=== PATIENT | female | born 1995 | race Caucasian/White ===

== ENCOUNTER 2018-11-23 10:01 | Inpatient (IN) ==
[2018-11-23] MEDS ORDERED: IOPAMIDOL 100 ML BOTTLE IV ONE (10:02)
--- NOTE | 2018-11-23 10:40 | XRay Report ---
INDICATION: Wheezing. Dyspnea. Chronic cough. TECHNIQUE: PA and lateral upright chest x-ray COMPARISON: Previous examinations dated 11/16/2018 and 11/08/2018 FINDINGS:Lungs are negative. No parenchymal infiltrate or mass. No focal pulmonary parenchymal abnormality. Heart size and vascularity are normal. Meeta and mediastinum are negative. There is no pleural fluid. IMPRESSION: 1. Negative PA and lateral chest x-ray 2. No interval change since 11/16/2018 Interpreted and Authenticated by: Klaus Bennett 11/23/18
--- NOTE | 2018-11-23 10:50 | Emergency Department Note ---
SOB HPI - General Chief Complaint: Shortness of Breath/Dyspnea Stated Complaint: shortness of breath Time Seen by Provider: 11/23/18 10:13 Source: patient Mode of arrival: ambulatory Limitations: no limitations - History of Present Illness 22-year-old female in ED with shortness of breath or difficulty breathing. October 02 patient began coughing having chest discomfort with coughing and wheezing started along with shortness of breath. Patient was treating herself for seasonal allergies but states she does not normal any wheezing. October 18 she went to a minor care and was provided a Z-Robinson for possible pneumonia and a breathing treatment along with an inhaler for home use. October 26 she returned to a different minor care and was advised her x-ray looked good but was provided prednisone, cough syrup and Flonase. November 01 she was seen by her primary care provider and was provided Augmentin and Tessalon Perles. That night she had difficulty sleeping and shortness of breath. She went to work the next day and 911 was called to pick her up from work and she was taken to [facility], they admitted her for bacterial pneumonia/bronchitis and she stayed there until November 05. November 08 patient was still having difficulty breathing return to [facility] ER and she was provided IV fluids. November 09 patient went to her primary and was provided at home nebulizers. November 22 she was seen by her primary given a breathing treatment due to wheezing, protein pump inhibitor, and patient believes an antibiotic called levo something. Patient states during this entire time she feels she's had no changes in her breathing, she has difficulty sleeping through the night as she wakes up choking and coughing on mucous, she has decreased energy and at times she coughs to the point of vomiting. Patient states she has had no bowel or bladder changes and when she feels pain it's usually the left lower side. She has been doing her at home treatments nebulizer every 2-3 hours some days. Complaint: shortness of breath, cough Onset (ago): month(s) (1.5) Severity: moderate Consistency/Duration: constant Improves with: nothing Worsens with: lying flat, exertion Associated symptoms: Reports: chest pain (with cough), cough, wheezing, sputum production. Denies: fever Treatment prior to arrival: bronchodilator - Related Data Home oxygen amount: none Home Medications Medication Instructions Recorded Confirmed fluticasone propionate 50 1 spray INTRANASAL QDAY 11/09/18 11/22/18 mcg/actuation nasal spray,suspension guaifenesin ER 600 mg tablet, 600 mg PO BID PRN 11/09/18 11/22/18 extended release 12 hr montelukast 10 mg tablet 10 mg PO QPM 11/09/18 11/22/18 Previous Rx's Medication Instructions Recorded albuterol sulfate HFA 90 2 puff INHALATION Q6H PRN #6.7 g 10/19/18 mcg/actuation aerosol inhaler albuterol sulfate 2.5 mg/3 mL 2.5 mg INHALATION Q4H PRN #75 ml 11/09/18 (0.083 %) solution for nebulization nebulizer accessories kit See Dose Instructions .ROUTE 11/09/18 .MEDSUPPLY #1 each fluticasone 250 mcg-salmeterol 50 1 inh INHALATION BID #60 each 11/16/18 mcg/dose blistr powdr for inhalation ipratropium-albuterol 0.5 mg-3 3 ml INHALATION QID PRN #90 ml 11/22/18 mg(2.5 mg base)/3 mL nebulization soln levofloxacin 500 mg tablet 500 mg PO QDAY #7 tab 11/22/18 pantoprazole 40 mg tablet,delayed 40 mg PO QDAY #30 tab 11/22/18 release Allergies Allergy/AdvReac Type Severity Reaction Status Date / Time No Known Drug Allergies Allergy Verified 11/22/18 10:59 Review of Systems All systems ED: reviewed and negative except as stated. Past Medical History - Past Medical History PMFSH Narrative: All Active Problems (Last Updated 11/23/18 @ 06:51 by Rasheeda Nash) Bacterial pneumonia (Chronic) Cough (Chronic) Multifocal pneumonia (Chronic) Acute bronchitis (Chronic) Heartburn (Acute) Hyperglycemia (Acute) Tachycardia (Chronic) Leukocytosis (Chronic) Ear pain (Chronic) SOB (shortness of breath) (Chronic) Pneumonia (Chronic) Past Surgical History (Last Reviewed 11/22/18 @ 12:45 by FRANK Brothers) History of adenoidectomy (Chronic) History of tonsillectomy (Chronic) Family History (Last Reviewed 11/22/18 @ 12:45 by FRANK Brothers) Grandfather Cancer Grandmother Cancer Other Alcohol abuse Asthma Hypertension Migraine Seizure - Social History smoking status: Never smoker Alcohol use: Reports: None Drug use: Reports: none Physical Exam Limitations: no limitations General appearance: alert, in no apparent distress (patient does have rapid respirations but is able to talk in full sentences) Head: atraumatic, normocephalic, normal inspection Eye: Present: normal appearance, PERRL. Absent: conjunctival injection ENT: normal oropharynx, mucous membranes moist, TM's normal bilaterally Neck: Present: normal inspection. Absent: tenderness, lymphadenopathy Chest: Present: normal inspection, symmetric chest wall rise. Absent: tenderness Respiratory: Present: wheezes (bilateral throughout) Cardiovascular: Present: tachycardia. Absent: systolic murmur, diastolic murmur Abdominal: Present: soft, normal bowel sounds. Absent: distention, tenderness, guarding, rebound, rigidity Extremities: Present: normal inspection. Absent: pedal edema Back: Present: normal inspection. Absent: tenderness, CVA tenderness (R), CVA tenderness (L) Neurological: Present: alert, oriented X3, normal gait Psychiatric: Present: normal affect, normal mood. Absent: depressed, agitated, anxious, flat affect Skin: Present: warm, dry, intact, pallor. Absent: cool, diaphoretic Course Vital Signs Temperature 97.0 F 11/23/18 10:03 Pulse Rate 119 H 11/23/18 10:03 Respiratory Rate 24 H 11/23/18 10:03 Blood Pressure 119/81 11/23/18 10:03 Pulse Oximetry (%) 97 11/23/18 10:03 Temperature 97.0 F 11/23/18 10:03 Pulse Rate 88 11/23/18 12:53 Respiratory Rate 19 11/23/18 12:53 Blood Pressure 101/65 11/23/18 12:53 Pulse Oximetry (%) 98 11/23/18 12:53 Shortness of Breath/Dyspnea - [facility] Narrative Medical decision making narrative: Patient did present with increased respirations and tachypnea. Patient did take levofloxacin by mouth one day ago and this morning. WBC 16.0 which is increased from one day ago at 14.7, lactic acid 2.8, d-dimer 0.56, CO2 19, anion gap 18, negative urine drug screen, negative leukocytes and urine HCG. x-ray chest negative, CT a chest ordered due to elevated d-dimer which did show upper left lobe infiltrates which have improved since 11/02. Provided patient later lactated Ringer's 2-boluses (and 3rd started prior to going to the floor) and nebulizer treatment which did not change wheezing. Contacted hospitalist Dr. Cedillo who accepted patient. - Lab Data Lab results reviewed: Yes I reviewed the patient's lab results. Result diagrams: 11/23/18 10:25 11/23/18 10:25 Lab Results 11/23/18 11/23/18 11/23/18 Range/Units 10:25 10:25 10:25 WBC 16.0 H (4.5-11.0) K/mcL RBC 5.15 (4.00-5.20) M/mcL Hgb 13.9 (12.0-15.0) g/dL Hct 43.0 (36.0-48.0) % MCV 83.6 (80.0-100.0) fL MCH 27.0 (26.0-34.0) pg MCHC 32.3 (31.0-36.0) g/dL RDW 17.2 H (11.5-14.5) % Plt Count 348 (140-440) K/mcL MPV 9.4 (7.4-10.4) fL Gran % 70.3 (38.0-78.0) % Lymph % (Auto) 14.4 L (15.5-49.0) % [place] % (Auto) 4.9 (1.0-12.0) % Eos % (Auto) 10.1 H (0.0-7.0) % Baso % (Auto) 0.3 (0.0-2.0) % Gran # 11.3 H (1.8-8.0) K/mcL Lymph # (Auto) 2.3 (1.5-4.8) K/mcL [place] # (Auto) 0.8 (0.1-0.9) K/mcL Eos # (Auto) 1.6 H (0.0-0.7) K/mcL Baso # (Auto) 0.1 (0.0-0.3) K/mcL D-Dimer 0.56 H (0.00-0.40) ug/ml VBG Lactic Acid (0.5-2.0) mmol/L Sodium 141 (133-145) mmol/L Potassium 3.4 (3.3-5.1) mmol/L Chloride 104 (96-108) mmol/L Carbon Dioxide 19 L (22-30) mmol/L Anion Gap 18.0 H (8-16) BUN 7 (6-20) mg/dl Creatinine 0.8 (0.6-1.1) mg/dl GFR Calculation 106 Glucose 104 (70-105) mg/dL Calcium 9.1 (8.6-10.4) mg/dl Total Bilirubin 0.5 (0.0-1.0) mg/dL AST 16 (0-37) U/l ALT 27 (0-40) U/l Alkaline Phosphatase 86 (39-117) U/L Total Protein 7.4 (5.9-8.4) gm/dL Albumin 4.1 (3.2-5.2) gm/dL Globulin 3.3 (2.2-3.7) gm/dL Albumin/Globulin Ratio 1.2 (1.0-2.3) Urine Color Urine Appearance Urine pH (5.0-9.0) Ur Specific [place] (1.000-1.035) Urine Protein (NEG) mg/dL Urine Glucose (UA) (NEG) mg/dL Urine Ketones (NEG) mg/dL Urine Occult Blood (<0.03) mg/dL Urine Nitrate (NEG) Urine Bilirubin (NEG) mg/dL Urine Urobilinogen (NEG) mg/dL Ur Leukocyte Esterase (NEG) /uL Urine RBC (0-1) /hpf Urine WBC (0-4) /hpf Ur Squamous Epith Cells (0-4) /hpf Ur Transition Epith Cell (0-2) /hpf Urine Bacteria (0) /hpf Urine Mucus (0) /hpf Ur Culture Indicated? Urine HCG, Qual (<20 mIU/ml) Urine Opiates Screen (NONDETECTED) Ur Oxycodone Screen (NONDETECTED) Urine Methadone Screen (NONDETECTED) Ur Barbiturates Screen (NONDETECTED) Ur Phencyclidine Scrn (NONDETECTED) Ur Amphetamines Screen (NONDETECTED) U Benzodiazepines Scrn (NONDETECTED) Urine Cocaine Screen (NONDETECTED) U Marijuana (THC) Screen (NONDETECTED) 11/23/18 11/23/18 11/23/18 Range/Units 10:25 11:32 11:32 WBC (4.5-11.0) K/mcL RBC (4.00-5.20) M/mcL Hgb (12.0-15.0) g/dL Hct (36.0-48.0) % MCV (80.0-100.0) fL MCH (26.0-34.0) pg MCHC (31.0-36.0) g/dL RDW (11.5-14.5) % Plt Count (140-440) K/mcL MPV (7.4-10.4) fL Gran % (38.0-78.0) % Lymph % (Auto) (15.5-49.0) % [place] % (Auto) (1.0-12.0) % Eos % (Auto) (0.0-7.0) % Baso % (Auto) (0.0-2.0) % Gran # (1.8-8.0) K/mcL Lymph # (Auto) (1.5-4.8) K/mcL [place] # (Auto) (0.1-0.9) K/mcL Eos # (Auto) (0.0-0.7) K/mcL Baso # (Auto) (0.0-0.3) K/mcL D-Dimer (0.00-0.40) ug/ml VBG Lactic Acid 2.8 H (0.5-2.0) mmol/L Sodium (133-145) mmol/L Potassium (3.3-5.1) mmol/L Chloride (96-108) mmol/L Carbon Dioxide (22-30) mmol/L Anion Gap (8-16) BUN (6-20) mg/dl Creatinine (0.6-1.1) mg/dl GFR Calculation Glucose (70-105) mg/dL Calcium (8.6-10.4) mg/dl Total Bilirubin (0.0-1.0) mg/dL AST (0-37) U/l ALT (0-40) U/l Alkaline Phosphatase (39-117) U/L Total Protein (5.9-8.4) gm/dL Albumin (3.2-5.2) gm/dL Globulin (2.2-3.7) gm/dL Albumin/Globulin Ratio (1.0-2.3) Urine Color Yellow Urine Appearance Clear Urine pH 7.0 (5.0-9.0) Ur Specific [place] 1.018 (1.000-1.035) Urine Protein Neg (NEG) mg/dL Urine Glucose (UA) Negative (NEG) mg/dL Urine Ketones Neg (NEG) mg/dL Urine Occult Blood Neg (<0.03) mg/dL Urine Nitrate Neg (NEG) Urine Bilirubin Neg (NEG) mg/dL Urine Urobilinogen Neg (NEG) mg/dL Ur Leukocyte Esterase Neg (NEG) /uL Urine RBC < 1 (0-1) /hpf Urine WBC 1 (0-4) /hpf Ur Squamous Epith Cells 1 (0-4) /hpf Ur Transition Epith Cell < 1 (0-2) /hpf Urine Bacteria 0 (0) /hpf Urine Mucus Mod (0) /hpf Ur Culture Indicated? No Urine HCG, Qual (<20 mIU/ml) Urine Opiates Screen None detected (NONDETECTED) Ur Oxycodone Screen None detected (NONDETECTED) Urine Methadone Screen None detected (NONDETECTED) Ur Barbiturates Screen None detected (NONDETECTED) Ur Phencyclidine Scrn None detected (NONDETECTED) Ur Amphetamines Screen None detected (NONDETECTED) U Benzodiazepines Scrn None detected (NONDETECTED) Urine Cocaine Screen None detected (NONDETECTED) U Marijuana (THC) Screen None detected (NONDETECTED) 11/23/18 Range/Units 11:32 WBC (4.5-11.0) K/mcL RBC (4.00-5.20) M/mcL Hgb (12.0-15.0) g/dL Hct (36.0-48.0) % MCV (80.0-100.0) fL MCH (26.0-34.0) pg MCHC (31.0-36.0) g/dL RDW (11.5-14.5) % Plt Count (140-440) K/mcL MPV (7.4-10.4) fL Gran % (38.0-78.0) % Lymph % (Auto) (15.5-49.0) % [place] % (Auto) (1.0-12.0) % Eos % (Auto) (0.0-7.0) % Baso % (Auto) (0.0-2.0) % Gran # (1.8-8.0) K/mcL Lymph # (Auto) (1.5-4.8) K/mcL [place] # (Auto) (0.1-0.9) K/mcL Eos # (Auto) (0.0-0.7) K/mcL Baso # (Auto) (0.0-0.3) K/mcL D-Dimer (0.00-0.40) ug/ml VBG Lactic Acid (0.5-2.0) mmol/L Sodium (133-145) mmol/L Potassium (3.3-5.1) mmol/L Chloride (96-108) mmol/L Carbon Dioxide (22-30) mmol/L Anion Gap (8-16) BUN (6-20) mg/dl Creatinine (0.6-1.1) mg/dl GFR Calculation Glucose (70-105) mg/dL Calcium (8.6-10.4) mg/dl Total Bilirubin (0.0-1.0) mg/dL AST (0-37) U/l ALT (0-40) U/l Alkaline Phosphatase (39-117) U/L Total Protein (5.9-8.4) gm/dL Albumin (3.2-5.2) gm/dL Globulin (2.2-3.7) gm/dL Albumin/Globulin Ratio (1.0-2.3) Urine Color Urine Appearance Urine pH (5.0-9.0) Ur Specific [place] (1.000-1.035) Urine Protein (NEG) mg/dL Urine Glucose (UA) (NEG) mg/dL Urine Ketones (NEG) mg/dL Urine Occult Blood (<0.03) mg/dL Urine Nitrate (NEG) Urine Bilirubin (NEG) mg/dL Urine Urobilinogen (NEG) mg/dL Ur Leukocyte Esterase (NEG) /uL Urine RBC (0-1) /hpf Urine WBC (0-4) /hpf Ur Squamous Epith Cells (0-4) /hpf Ur Transition Epith Cell (0-2) /hpf Urine Bacteria (0) /hpf Urine Mucus (0) /hpf Ur Culture Indicated? Urine HCG, Qual Negative <20 (<20 mIU/ml) Urine Opiates Screen (NONDETECTED) Ur Oxycodone Screen (NONDETECTED) Urine Methadone Screen (NONDETECTED) Ur Barbiturates Screen (NONDETECTED) Ur Phencyclidine Scrn (NONDETECTED) Ur Amphetamines Screen (NONDETECTED) U Benzodiazepines Scrn (NONDETECTED) Urine Cocaine Screen (NONDETECTED) U Marijuana (THC) Screen (NONDETECTED) - Radiology Data Radiology results reviewed: Yes I reviewed the patient's radiology results. Date of Service: 11/23/18 Procedure(s): XR chest 2V Accession Number(s): [id number] INDICATION: Wheezing. Dyspnea. Chronic cough. TECHNIQUE: PA and lateral upright chest x-ray COMPARISON: Previous examinations dated 11/16/2018 and 11/08/2018 FINDINGS:Lungs are negative. No parenchymal infiltrate or mass. No focal pulmonary parenchymal abnormality. Heart size and vascularity are normal. Meeta and mediastinum are negative. There is no pleural fluid. IMPRESSION: 1. Negative PA and lateral chest x-ray 2. No interval change since 11/16/2018 Interpreted and Authenticated by: Klaus Bennett 11/23/18 Date of Service: 11/23/18 Procedure(s): CT angio chest Accession Number(s): [id number] CLINICAL INFORMATION: Elevated d-dimer. Wheezing. Cough. COMPARISON: Pulmonary CTA dated 11/02/2018 performed at [facility] TECHNIQUE: Axial images obtained through the chest. 60 mL intravenous contrast was administered, and scanning was performed during pulmonary arterial phase. Sagittally and coronally reformatted images were obtained. MIP reformatted images. FINDINGS: Small focal groundglass infiltrate in the left upper lobe lungs are otherwise negative. Lungs are improved since previous examination. There were multifocal groundglass infiltrates demonstrated previously. No focal mass. There is no bronchiectasis. No significant emphysematous change. Main pulmonary artery, right pulmonary artery, left pulmonary artery are negative. No lobar, segmental, or subsegmental emboli. Examination is negative for pulmonary embolism. Meeta and mediastinum are negative. Small axillary lymph nodes are probably physiologic. No supraclavicular adenopathy. Thoracic spine, sternum, ribs are negative. Upper abdomen is negative IMPRESSION: 1. Negative pulmonary CTA 2. Small focal groundglass infiltrate in the left upper lobe. Lungs are improved since 11/02/2018 Disposition Pt seen by TECHNICIAN BIOLOGICAL HEALTH/PA only: No (Medical Record Clerk) Clinical Impression: Pneumonia Qualifiers: Pneumonia type: due to unspecified organism Laterality: left Lung location: upper lobe of lung Qualified Code(s): J18.1 - Lobar pneumonia, unspecified organism Sepsis Qualifiers: Sepsis type: sepsis due to unspecified organism Qualified Code(s): A41.9 - Sepsis, unspecified organism Disposition: Xfer As Inpt ([facility]) Condition: Good Referrals: Elizabeth Lopez ARNP [Primary Care Provider] - Time of Disposition: 14:38
[2018-11-23 11:12] LABS: Basophils # (Auto) 0.1 K/mcL (0.0-0.3); Basophils % (Auto) 0.3 % (0.0-2.0); Eosinophils # (Auto) 1.6 K/mcL (0.0-0.7); Eosinophils % (Auto) 10.1 % (0.0-7.0); Granulocytes % (Auto) 70.3 % (38.0-78.0); Hemoglobin 13.9 g/dL (12.0-15.0); Lymphocytes # (Auto) 2.3 K/mcL (1.5-4.8); Lymphocytes % (Auto) 14.4 % (15.5-49.0); Mean Cell Volume 83.6 fL (80.0-100.0); Mean Corpuscular HGB Conc 32.3 g/dL (31.0-36.0); Mean Platelet Volume 9.4 fL (7.4-10.4); Monocytes # (Auto) 0.8 K/mcL (0.1-0.9); Monocytes % (Auto) 4.9 % (1.0-12.0); Platelet Count 348 K/mcL (140-440); RBC 5.15 M/mcL (4.00-5.20); Red Cell Distribution Width 17.2 % (11.5-14.5)
[2018-11-23 11:31] LABS: ALT/SGPT 27 U/l (0-40); AST/SGOT 16 U/l (0-37); Albumin 4.1 gm/dL (3.2-5.2); Albumin/Globulin Ratio 1.2 (1.0-2.3); Alkaline Phosphatase 86 U/L (39-117); Bilirubin,Total 0.5 mg/dL (0.0-1.0); Blood Urea Nitrogen 7 mg/dl (6-20); Calcium 9.1 mg/dl (8.6-10.4); Carbon Dioxide 19 mmol/L (22-30); Chloride 104 mmol/L (96-108); Globulin 3.3 gm/dL (2.2-3.7); Glomerular Filtration Rate 106; Glucose 104 mg/dL (70-105); Potassium 3.4 mmol/L (3.3-5.1); Sodium 141 mmol/L (133-145)
[2018-11-23] MEDS ORDERED: IPRATROPIUM/ALBUTEROL 3 ML AMPUL.NEB NEB ONE ×2 (11:36→11:41)
[2018-11-23] MEDS ORDERED: LACTATED RINGERS 2,000 ML IV ONE (11:42)
[2018-11-23 12:17] LABS: Appearance,Urine CLEAR; Bacteria,Urine 0 /hpf (0); Bilirubin,Urine NEG (NEG); Color,Urine YELLOW; Culture Indicated,Urine NO; Glucose,Urine (UA) NEGATIVE (NEG); Ketones,Urine NEG (NEG); Leukocyte Esterase,Urine NEG /uL (NEG); Mucus,Urine MOD /hpf (0); Nitrate,Urine NEG (NEG); Protein,Urine NEG (NEG); Specific Gravity,Urine 1.018 (1.000-1.035); Urine Blood NEG mg/dL (<0.03); Urine RBC < 1 /hpf (0-1); Urine Squamous Epithelial Cell 1 /hpf (0-4); Urine Transitional Epi Cells < 1 /hpf (0-2); Urine WBC 1 /hpf (0-4); Urobilinogen,Urine NEG (NEG)
--- NOTE | 2018-11-23 12:24 | Cat Scan Report ---
CLINICAL INFORMATION: Elevated d-dimer. Wheezing. Cough. COMPARISON: Pulmonary CTA dated 11/02/2018 performed at [facility] TECHNIQUE: Axial images obtained through the chest. 60 mL intravenous contrast was administered, and scanning was performed during pulmonary arterial phase. Sagittally and coronally reformatted images were obtained. MIP reformatted images. FINDINGS: Small focal groundglass infiltrate in the left upper lobe lungs are otherwise negative. Lungs are improved since previous examination. There were multifocal groundglass infiltrates demonstrated previously. No focal mass. There is no bronchiectasis. No significant emphysematous change. Main pulmonary artery, right pulmonary artery, left pulmonary artery are negative. No lobar, segmental, or subsegmental emboli. Examination is negative for pulmonary embolism. Meeta and mediastinum are negative. Small axillary lymph nodes are probably physiologic. No supraclavicular adenopathy. Thoracic spine, sternum, ribs are negative. Upper abdomen is negative IMPRESSION: 1. Negative pulmonary CTA 2. Small focal groundglass infiltrate in the left upper lobe. Lungs are improved since 11/02/2018 The exam was performed using radiation dose optimization techniques including, but not limited to, automated exposure control, adjustment of the mA and/or kV according to patient size and use of iterative reconstruction technique. Interpreted and Authenticated by: Klaus Bennett 11/23/18
[2018-11-23 13:51] LABS: Amphetamine Screen,Urine NONE DETECTED (NONDETECTED); Barbiturate Screen,Urine NONE DETECTED (NONDETECTED); Benzodiazepines Screen,Urine NONE DETECTED (NONDETECTED); Cannabinoid Screen,Urine NONE DETECTED (NONDETECTED); Cocaine Screen,Urine NONE DETECTED (NONDETECTED); Opiate Screen,Urine NONE DETECTED (NONDETECTED); Oxycodone, Urine Screen NONE DETECTED (NONDETECTED); Phencyclidine Screen,Urine NONE DETECTED (NONDETECTED)
--- NOTE | 2018-11-23 14:38 | Internal Med History&Physical ---
Medical - H&P: HPI Patient information: Note initiated : 11/23/18 at 2:34 pm Service Date, if different from initiated Date: [] Patient: Katlyn Martinez 22 y/o F admitted on for shortness of breath. Chief Complaint: [] History of present illness: Ms. Martinez is a 22 year old F who works at [employer], presents to the hospital today for shortness of breath chills going on for the last 6 days. The patient has not been feeling well since September, she notes that she came down with symptoms of shortness of breath cough with whitish-yellowish production, wheezing, fatigue tiredness. She was evaluated at that time at an urgent care center, advised to take a Z-Robinson. She completed the course of antibiotics which did not help her symptoms. She was seen again I believe in minor care and was prescribed another antibiotic Augmentin along with some steroids. The patient to please medications without any improvement in her symptoms. She was admitted to [facility] in October I believe in the early part of the month. She was treated over there with azithromycin and Rocephin, steroids. Chest CT was done which showed multifocal pneumonia with groundglass opacities. Patient notes that she had some improvement to her treatment. She also was prescribed a course of doxycycline and steroids at discharge. Last dose of steroid was 2 weeks ago. After she finished a steroid she felt better for a few days however symptoms are totally back up. The present episode started I believe on and has progressively gotten worse. She has subjective sensation of chills cough shortness of breath and wheezing. She has headache with cough intermittently, no changes in vision, sometimes it is difficult to swallow hurts. Denies any chest pain nausea vomiting diarrhea denies any anxiety or depression. The patient denies any skin rashes or new joint pains. 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 She denies any sick contacts and notes that probably she was a source of the infection for the rest of her family, has after her episode of illness and may some members of her family were also sick with similar illness. The patient does not smoke, no recreational drug use no alcohol reported. She denies any recent change in the perfume or any obvious environmental change that she can think of. Labs in the emergency room show, WBC count of 16,000, 10% eosinophils, chemistries unremarkable, urine is negative for any hematuria proteinuria, chest CT was done which shows pneumonia in the left upper lobe groundglass opacity. On comparison with a chest CT done at [facility] where the patient had multifocal pneumonia, at this time the patient only has left upper lobe pneumonia the rest of the opacities have resolved. Lactic acid is elevated at 2.8, patient has had multiple rounds of duo nebs this morning. Given that the patient is significantly short of breath, has had recent admissions and failed outpatient treatment, elevated white blood cell count elevated lactic acid patient is being admitted to the hospital for management I have reviewed the chart at [facility], she was evaluated by infectious disease specialist at that time, she underwent testing for Legionella urine strep, purtusis, MRSA screen was negative sputum cultures were negative blood cultures were negative repeat chest x-ray done on 11/16 was also negative All systems: reviewed and no additional remarkable complaints except as stated (As per HPI rest negative) Medical - H&P: PMH Medical history: Medical History (Last Updated 11/23/18 @ 06:51 by Rasheeda Nash) Bacterial pneumonia (Chronic) Cough (Chronic) Multifocal pneumonia (Chronic) Acute bronchitis (Chronic) Tachycardia (Chronic) Leukocytosis (Chronic) Ear pain (Chronic) SOB (shortness of breath) (Chronic) Pneumonia (Chronic) Acute bronchitis (Resolved) Cough (Resolved) Headache (Resolved) Lymph node enlargement (Resolved) Pleuritic chest pain (Resolved) Viral pharyngitis (Resolved) Surgical history: Past Surgical History (Last Reviewed 11/22/18 @ 12:45 by FRANK Brothers) History of adenoidectomy (Chronic) History of tonsillectomy (Chronic) Pertinent family history: Family History (Last Reviewed 11/22/18 @ 12:45 by FRANK Brothers) Grandfather Cancer Grandmother Cancer Other Alcohol abuse Asthma Hypertension Migraine Seizure Family members to report history of thyroid issues Medical - H&P: Meds Home Medications Medication Instructions Recorded Confirmed Type albuterol sulfate HFA 90 2 puff INHALATION Q6H PRN #6.7 g 10/19/18 11/22/18 Rx mcg/actuation aerosol inhaler albuterol sulfate 2.5 mg/3 mL 2.5 mg INHALATION Q4H PRN #75 ml 11/09/18 11/22/18 Rx (0.083 %) solution for nebulization fluticasone propionate 50 1 spray INTRANASAL QDAY 11/09/18 11/22/18 History mcg/actuation nasal spray,suspension guaifenesin ER 600 mg tablet, 600 mg PO BID PRN 11/09/18 11/22/18 History extended release 12 hr montelukast 10 mg tablet 10 mg PO QPM 11/09/18 11/22/18 History nebulizer accessories kit See Dose Instructions .ROUTE 11/09/18 11/22/18 Rx .MEDSUPPLY #1 each fluticasone 250 mcg-salmeterol 50 1 inh INHALATION BID #60 each 11/16/18 11/22/18 Rx mcg/dose blistr powdr for inhalation ipratropium-albuterol 0.5 mg-3 3 ml INHALATION QID PRN #90 ml 11/22/18 11/22/18 Rx mg(2.5 mg base)/3 mL nebulization soln levofloxacin 500 mg tablet 500 mg PO QDAY #7 tab 11/22/18 11/22/18 Rx pantoprazole 40 mg tablet,delayed 40 mg PO QDAY #30 tab 11/22/18 11/22/18 Rx release Allergies Allergy/AdvReac Type Severity Reaction Status Date / Time No Known Drug Allergies Allergy Verified 11/22/18 10:59 Medical - H&P: Exam - Constitutional Vitals: Temp Pulse Resp BP Pulse Ox 97.0 F 88 19 101/65 98 11/23/18 10:03 11/23/18 12:53 11/23/18 12:53 11/23/18 12:53 11/23/18 12:53 Exam: GENERAL: The patient is a well-developed, well-nourished in no apparent distress. Is alert and oriented x3. Obese individual VITAL SIGNS: Reviewed and as noted elsewhere. HEENT: Head is normocephalic and atraumatic. Extraocular muscles are intact. Pupils are equal, round, and reactive to light. Nares appeared normal. Mouth appears any without lesions. Mucous membranes are moist. NECK: Normal to inspection, Supple, No lymphadenopathy or thyromegaly. LUNGS: Air entry equal on both sides, bilateral expiratory wheezes, prolonged expiratory phase. No accessory muscles of respiration patient is able to speak full sentences HEART: Regular rate and rhythm normal, S1 and S2 heard, no Gallop, S3 or Rub Noted, No Gross murmur heard. ABDOMEN: Soft, nontender, and nondistended. Positive bowel sounds. No hepatosplenomegaly was noted. Large pannus EXTREMITIES: No cyanosis, clubbing, rash, lesions or edema. NEUROLOGIC: Cranial nerves II through XII are grossly intact. Motor and Sensory System Grossly Intact PSYCHIATRIC: Normal affect, Normal Mood. Appropriate Behavior. SKIN: No ulceration or wounds noted, No jaundice, No rash noted. Medical - H&P: Reslt - Labs CBC & Chem 7: 11/23/18 10:25 11/23/18 10:25 Labs: Short CBC 11/23/18 Range/Units 10:25 WBC 16.0 H (4.5-11.0) K/mcL Hgb 13.9 (12.0-15.0) g/dL Hct 43.0 (36.0-48.0) % Plt Count 348 (140-440) K/mcL BMP 11/23/18 10:25 Sodium 141 Potassium 3.4 Chloride 104 Carbon Dioxide 19 L BUN 7 Creatinine 0.8 Glucose 104 Calcium 9.1 Liver Function 11/23/18 Range/Units 10:25 Total Bilirubin 0.5 (0.0-1.0) mg/dL AST 16 (0-37) U/l ALT 27 (0-40) U/l Alkaline Phosphatase 86 (39-117) U/L Albumin 4.1 (3.2-5.2) gm/dL Urine 11/23/18 Range/Units 11:32 Urine Color Yellow Urine Appearance Clear Urine pH 7.0 (5.0-9.0) Ur Specific [place] 1.018 (1.000-1.035) Urine Protein Neg (NEG) mg/dL Urine Glucose (UA) Negative (NEG) mg/dL Medical - H&P: A/P - Narrative A/P Narrative: A/P HCAP pneumonia Reactive airway disease Obesity BMI 39.5 Lactic Acidosis Plan Admit to med surg IV fluids, trend lactate Duonebs adn steroids Given the patient's clinical picture over the last 2 months I believe we need to expand our work-up to include alternative etiologies. I reviewed the case with the visual merchandising director unfortunately was not available for official consult. I will send work-up for autoimmune disease as well as any fungal or mycobacterial pathology. We will send sputum cultures for fungus as well as mycobacteria, PCP pneumonia, check HIV, sent work-up for autoimmune disease MIGEL screen along with ANCA screen. Check anti-CCP, rheumatoid factor, eosinophilic pneumonitis? Hypersensitvity pneumonititis? (steroids should cover) I have reviewed the patient's PFT, has increased residual volume and total lung capacity, indicative of an obstructive process however FEV1 was normal Patient may very well have severe allergic reactive airway disease, will rule out the above etiology, the patient's clinically improves then can follow-up with the visual merchandising director as an outpatient who would be back next week DVT-heparin subcu Full code Social History - Tobacco smoking status: Never smoker - Alcohol alcohol intake frequency: does not drink - Substance use substance use type: does not use
[2018-11-23] MEDS ORDERED: LACTATED RINGERS 1,000 ML IV ONE ×2 (14:39→15:18)
[2018-11-23] MEDS ORDERED: NALOXONE HCL 0.4 MG/ML VIAL IV PRN (15:18)
[2018-11-23] MEDS ORDERED: VANCOMYCIN PER PHARMACY IV SCH (15:18)
[2018-11-23] MEDS ORDERED: ONDANSETRON 4 MG/2 ML VIAL IV PRN (15:18)
[2018-11-23] MEDS: IPRATROPIUM/ALBUTEROL 3 ML AMPUL.NEB NEB SCH ×3 (15:37→22:09)
[2018-11-23] MEDS: PIPERACILLIN SODIUM/TAZOBACTAM 3.375 GM in DEXTROSE 5% IN WATER 50 ML IV SCH ×2 (16:04→20:19)
[2018-11-23] MEDS: methylPREDNISolone SOD SUCC 125 MG/2 ML VIAL IV SCH ×2 (16:04→23:50)
[2018-11-23 16:39] LABS: C-Reactive Protein 3.5 mg/dl (0.0-0.8)
[2018-11-23 16:52] LABS: Complement C3 137.3 mg/dl (90-180); Procalcitonin < 0.05 ng/mL (<0.10); Rheumatoid Factor < 10 IU/ml (0-14)
[2018-11-23] MEDS ORDERED: VANCOMYCIN 1,500 MG in 0.9 % SODIUM CHLORIDE 500 ML IV ONE (17:00)
[2018-11-23] MEDS: ACETAMINOPHEN 325 MG TABLET PO PRN (20:08)
[2018-11-23] MEDS: FAMOTIDINE 20 MG TABLET PO SCH (20:08)
--- NOTE | 2018-11-23 20:31 | Emergency Department Note ---
ED Note Addendum Note Addendum: I discussed this case with the mid-level provider and agree with the assessment and plan.
[2018-11-23] MEDS: 0.9 % SODIUM CHLORIDE 10 ML SYRINGE IV SCH (20:58)
[2018-11-23] MEDS ORDERED: VANCOMYCIN 500 MG in 0.9 % SODIUM CHLORIDE 100 ML IV ONE (21:00)
[2018-11-23] MEDS: traZODone HCL 50 MG TABLET PO PRN (23:51)
[2018-11-24] MEDS: PIPERACILLIN SODIUM/TAZOBACTAM 3.375 GM in DEXTROSE 5% IN WATER 50 ML IV SCH ×4 (00:11→17:45)
[2018-11-24] MEDS: IPRATROPIUM/ALBUTEROL 3 ML AMPUL.NEB NEB SCH ×4 (03:24→14:33)
[2018-11-24 05:27] LABS: Basophils # (Auto) 0 K/mcL (0.0-0.3); Basophils % (Auto) 0 % (0.0-2.0); Eosinophils # (Auto) 0 K/mcL (0.0-0.7); Eosinophils % (Auto) 0 % (0.0-7.0); Granulocytes % (Auto) 92.3 % (38.0-78.0); Hematocrit 37.4 % (36.0-48.0); Hemoglobin 12.5 g/dL (12.0-15.0); Lymphocytes # (Auto) 0.8 K/mcL (1.5-4.8); Lymphocytes % (Auto) 7.3 % (15.5-49.0); Mean Corpuscular HGB Conc 33.4 g/dL (31.0-36.0); Monocytes # (Auto) 0 K/mcL (0.1-0.9); Monocytes % (Auto) 0.4 % (1.0-12.0); Platelet Count 323 K/mcL (140-440); RBC 4.51 M/mcL (4.00-5.20); Red Cell Distribution Width 17.4 % (11.5-14.5); WBC 10.4 K/mcL (4.5-11.0)
[2018-11-24] MEDS: methylPREDNISolone SOD SUCC 125 MG/2 ML VIAL IV SCH ×3 (05:34→21:59)
[2018-11-24] MEDS: 0.9 % SODIUM CHLORIDE 10 ML SYRINGE IV SCH ×3 (05:35→20:50)
[2018-11-24 06:09] LABS: ALT/SGPT 23 U/l (0-40); AST/SGOT 13 U/l (0-37); Albumin 3.8 gm/dL (3.2-5.2); Albumin/Globulin Ratio 1.2 (1.0-2.3); Alkaline Phosphatase 79 U/L (39-117); Bilirubin,Direct < 0.2 mg/dL (0.0-0.3); Bilirubin,Total 0.5 mg/dL (0.0-1.0); Blood Urea Nitrogen 5 mg/dl (6-20); Carbon Dioxide 19 mmol/L (22-30); Chloride 106 mmol/L (96-108); Globulin 3.1 gm/dL (2.2-3.7); Glomerular Filtration Rate 131; Glucose 149 mg/dL (70-105); Lactate Dehydrogenase 209 U/L (94-250); Magnesium 2.3 mg/dL (1.6-2.5); Phosphorous 2.4 mg/dL (2.7-4.5); Potassium 3.9 mmol/L (3.3-5.1); Sodium 139 mmol/L (133-145); Triglycerides 40 mg/dl (<125); Uric Acid 2.2 mg/dL (2.5-8.0)
[2018-11-24] MEDS: FAMOTIDINE 20 MG TABLET PO SCH ×2 (09:45→20:50)
[2018-11-24] MEDS: VANCOMYCIN 1,500 MG in 0.9 % SODIUM CHLORIDE 500 ML IV SCH ×2 (09:46→20:42)
--- NOTE | 2018-11-24 12:19 | Internal Med Progress Note ---
Medical - PN: Subj Patient information: Note initiated : 11/24/18 at 12:17 pm Service Date, if different from initiated Date: [] Patient: Katlyn Martinez 22 y/o F admitted on 11/23/18 for shortness of breath. Chief Complaint: [] Interval history: Ms. Martinez is a 22 year old F who works at [employer], presents to the hospital today for shortness of breath chills going on for the last 6 days. The patient has not been feeling well since September, she notes that she came down with symptoms of shortness of breath cough with whitish-yellowish production, wheezing, fatigue tiredness. She was evaluated at that time at an urgent care center, advised to take a Z-Robinson. She completed the course of antibiotics which did not help her symptoms. She was seen again I believe in minor care and was prescribed another antibiotic Augmentin along with some steroids. The patient to please medications without any improvement in her symptoms. She was admitted to [facility] in October I believe in the early part of the month. She was treated over there with azithromycin and Rocephin, steroids. Chest CT was done which showed multifocal pneumonia with groundglass opacities. Patient notes that she had some improvement to her treatment. She also was prescribed a course of doxycycline and steroids at discharge. Last dose of steroid was 2 weeks ago. After she finished a steroid she felt better for a few days however symptoms are totally back up. The present episode started I believe on and has progressively gotten worse. She has subjective sensation of chills cough shortness of breath and wheezing. She has headache with cough intermittently, no changes in vision, sometimes it is difficult to swallow hurts. Denies any chest pain nausea vomiting diarrhea denies any anxiety or depression. The patient denies any skin rashes or new joint pains. 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 She denies any sick contacts and notes that probably she was a source of the infection for the rest of her family, has after her episode of illness and may some members of her family were also sick with similar illness. The patient does not smoke, no recreational drug use no alcohol reported. She denies any recent change in the perfume or any obvious environmental change that she can think of. Labs in the emergency room show, WBC count of 16,000, 10% eosinophils, chemistries unremarkable, urine is negative for any hematuria proteinuria, chest CT was done which shows pneumonia in the left upper lobe groundglass opacity. On comparison with a chest CT done at [facility] where the patient had multifocal pneumonia, at this time the patient only has left upper lobe pneumonia the rest of the opacities have resolved. Lactic acid is elevated at 2.8, patient has had multiple rounds of duo nebs this morning. Given that the patient is significantly short of breath, has had recent admissions and failed outpatient treatment, elevated white blood cell count elevated lactic acid patient is being admitted to the hospital for management I have reviewed the chart at [facility], she was evaluated by infectious disease specialist at that time, she underwent testing for Legionella urine strep, purtusis, MRSA screen was negative sputum cultures were negative blood cultures were negative repeat chest x-ray done on 11/16 was also negative 11/24 Patient seen and examined, overnight a bit tachycardic however this morning much better. Has no complaints or concerns breathing is better. Labs reviewed, procalcitonin is negative cultures are negative so far Pertinent ROS: Denies headache, dizziness Denies chest pain, palpitations Denies cough or shortness of breath (much improved) Denies abdominal pain, nausea or vomiting. - Constitutional Vitals: Vital Signs Temp Pulse Resp BP Pulse Ox 99.2 F H 130 H 16 118/74 95 11/24/18 11:16 11/24/18 11:16 11/24/18 11:16 11/24/18 11:16 11/24/18 11:16 Period Temp Pulse Resp BP Sys/Vee Pulse Ox Last 24 Hr 97.0 F-99.2 F 88-130 16-29 100-136/64-103 87-100 Intake and Output 11/23/18 11/24/18 11/24/18 21:59 05:59 13:59 Intake Total 2667 2350 50 Output Total 1300 1050 Balance 1367 1300 50 Weight 241 lb Intake & Output: Intake & Output 11/23/18 11/24/18 11/24/18 21:59 05:59 13:59 Intake Total 2667 2350 50 Output Total 1300 1050 Balance 1367 1300 50 Weight 241 lb Intake: IV 2667 1050 50 Lactated Ringers 1,000 ml @ 2567 Wide Open IV BOLUS ONE Rx#: [id number] Zosyn 3.375 gm In Dextrose 5% 100 50 50 in Water 50 ml @ 100 mls/hr IV Q6H [facility] Rx#:[id number] Oral 1300 Output: Void Amount 1300 1050 Other: Meal Dinner Percent of Meal Consumed 75% Feeding Ability Independent Urine Appearance Clear Urine Color Bright Yellow Urine Odor Normal # Voids 1 Exam: Constitutional; Afebrile, cooperative, alert, not in distress. Respiratory system: Air Entry equal on both sides, No crackles, only mild wheezing , no rhonchi. CVS- Rate rhythm regular, S1,S2 heard, no gallop, no rub. Abdomen- Soft nontender abdomen, no organomegaly, no tenderness, no guarding or rigidity, [employer]- AOOx3, moving all extremities, no gross focal deficit noted. Medical - PN: Obj Da - Labs CBC & Chem 7: 11/24/18 04:34 11/24/18 04:34 Labs: Abnormal Lab Results 11/24/18 11/24/18 11/23/18 04:34 04:34 15:39 WBC RDW 17.4 H Gran % 92.3 H Lymph % (Auto) 7.3 L [place] % (Auto) 0.4 L Eos % (Auto) Gran # 9.6 H Lymph # (Auto) 0.8 L [place] # (Auto) 0 L Eos # (Auto) ESR D-Dimer VBG Lactic Acid < 0.2 L Carbon Dioxide 19 L Anion Gap BUN 5 L Glucose 149 H Uric Acid 2.2 L Phosphorus 2.4 L GGT 41 H C-Reactive Protein 11/23/18 11/23/18 11/23/18 15:39 15:39 10:25 WBC RDW Gran % Lymph % (Auto) [place] % (Auto) Eos % (Auto) Gran # Lymph # (Auto) [place] # (Auto) Eos # (Auto) ESR 29 H D-Dimer VBG Lactic Acid 2.8 H Carbon Dioxide Anion Gap BUN Glucose Uric Acid Phosphorus GGT C-Reactive Protein 3.5 H 11/23/18 11/23/18 11/23/18 10:25 10:25 10:25 WBC 16.0 H RDW 17.2 H Gran % Lymph % (Auto) 14.4 L [place] % (Auto) Eos % (Auto) 10.1 H Gran # 11.3 H Lymph # (Auto) [place] # (Auto) Eos # (Auto) 1.6 H ESR D-Dimer 0.56 H VBG Lactic Acid Carbon Dioxide 19 L Anion Gap 18.0 H BUN Glucose Uric Acid Phosphorus GGT C-Reactive Protein Meds: Medications Acetaminophen (Tylenol) 650 mg PO Q6HP PRN PRN Reason: PAIN/FEVER > 101 Last Admin: 11/23/18 20:08 Dose: 650 mg Documented by: Albuterol/Ipratropium (Duoneb) 3 ml NEB Q4HRT [facility] Last Admin: 11/24/18 11:01 Dose: 3 ml Documented by: Famotidine (Pepcid) 20 mg PO BID [facility] Last Admin: 11/24/18 09:45 Dose: 20 mg Documented by: Piperacillin Sod/Tazobactam (Sod 3.375 gm/ Dextrose) 50 mls @ 100 mls/hr IV Q6H [facility]; Protocol Last Infusion: 11/24/18 06:04 Dose: Infused Documented by: Vancomycin HCl 1,500 mg/ (Sodium Chloride) 500 mls @ 333.3 mls/hr IV Q12H [facility] Last Admin: 11/24/18 09:46 Dose: 333.3 mls/hr Documented by: Methylprednisolone Sodium Succinate (Solu-Medrol) 62.5 mg IV Q8 [facility] Last Admin: 11/24/18 05:34 Dose: 62.5 mg Documented by: Naloxone HCl (Narcan) 0.1 mg IV Q2MIN PRN PRN Reason: Opiate Reversal Ondansetron HCl (Zofran) 4 mg IV Q6HP PRN PRN Reason: Nausea And Vomiting Sodium Chloride (Saline Flush) 10 ml IV Q8 [facility] Last Admin: 11/24/18 05:35 Dose: 10 ml Documented by: Trazodone HCl (Desyrel) 25 mg PO HSP PRN PRN Reason: Insomnia Last Admin: 11/23/18 23:51 Dose: 25 mg Documented by: Vancomycin HCl (Vancomycin Per Pharmacy) 1 order IV UD [facility]; Protocol Medical - PN: A/P - Time Spent With Patient Total time spent is greater than 50% in coordination of care (as documented) at patient's floor/unit and/or counseling patient: - Narrative A/P Narrative: A/P HCAP pneumonia Reactive airway disease Obesity BMI 39.5 Lactic Acidosis Plan Continue to monitor and meds Continue vancomycin and Zosyn, cultures negative so far Patient was scheduled to see Dr. Borja tomorrow, will see if an inpatient consult is warranted if not will be scheduled outpatient follow-up Lactic acidosis is resolved Continue IV steroids duo nebs for now Full code Medical - PN: Qual - VTE Deep Vein Thrombosis/Pulmonary Embolism Present on Admission: No
[2018-11-24] MEDS: LEVALBUTEROL 1.25 MG/3 ML AMPUL.NEB NEB SCH ×3 (14:49→23:20)
[2018-11-24] MEDS: IPRATROPIUM 2.5 ML AMPUL.NEB NEB SCH ×3 (14:49→23:20)
[2018-11-24] MEDS ORDERED: METOPROLOL TARTRATE 25 MG TABLET PO ONE (15:54)
[2018-11-24] MEDS: ACETAMINOPHEN 325 MG TABLET PO PRN (16:24)
[2018-11-24] MEDS ORDERED: LORazepam 0.5 MG TABLET ONE (18:43)
[2018-11-24] MEDS: traZODone HCL 50 MG TABLET PO PRN (21:59)
[2018-11-25] MEDS: PIPERACILLIN SODIUM/TAZOBACTAM 3.375 GM in DEXTROSE 5% IN WATER 50 ML IV SCH ×3 (00:13→10:53)
[2018-11-25] MEDS: IPRATROPIUM 2.5 ML AMPUL.NEB NEB SCH ×6 (03:22→23:25)
[2018-11-25] MEDS: LEVALBUTEROL 1.25 MG/3 ML AMPUL.NEB NEB SCH ×6 (03:22→23:25)
[2018-11-25] MEDS: methylPREDNISolone SOD SUCC 125 MG/2 ML VIAL IV SCH ×2 (05:15→11:13)
[2018-11-25] MEDS: 0.9 % SODIUM CHLORIDE 10 ML SYRINGE IV SCH ×6 (05:15→21:31)
[2018-11-25] MEDS: LORazepam 0.5 MG TABLET PO PRN ×2 (05:27→23:15)
[2018-11-25 05:35] LABS: Basophils # (Auto) 0 K/mcL (0.0-0.3); Basophils % (Auto) 0.1 % (0.0-2.0); Eosinophils # (Auto) 0 K/mcL (0.0-0.7); Eosinophils % (Auto) 0 % (0.0-7.0); Granulocytes % (Auto) 94.9 % (38.0-78.0); Hematocrit 35.6 % (36.0-48.0); Hemoglobin 11.7 g/dL (12.0-15.0); Lymphocytes # (Auto) 0.8 K/mcL (1.5-4.8); Lymphocytes % (Auto) 3.5 % (15.5-49.0); Mean Cell Volume 84.2 fL (80.0-100.0); Mean Corpuscular HGB Conc 32.9 g/dL (31.0-36.0); Monocytes # (Auto) 0.4 K/mcL (0.1-0.9); Monocytes % (Auto) 1.5 % (1.0-12.0); Platelet Count 331 K/mcL (140-440); RBC 4.23 M/mcL (4.00-5.20); Red Cell Distribution Width 17.7 % (11.5-14.5); WBC 24.4 K/mcL (4.5-11.0)
[2018-11-25 05:56] LABS: ALT/SGPT 22 U/l (0-40); AST/SGOT 11 U/l (0-37); Albumin 3.5 gm/dL (3.2-5.2); Albumin/Globulin Ratio 1.3 (1.0-2.3); Alkaline Phosphatase 70 U/L (39-117); Bilirubin,Direct < 0.2 mg/dL (0.0-0.3); Bilirubin,Total 0.2 mg/dL (0.0-1.0); Blood Urea Nitrogen 10 mg/dl (6-20); Calcium 8.7 mg/dl (8.6-10.4); Carbon Dioxide 20 mmol/L (22-30); Chloride 109 mmol/L (96-108); Globulin 2.8 gm/dL (2.2-3.7); Glomerular Filtration Rate 131; Glucose 159 mg/dL (70-105); Lactate Dehydrogenase 192 U/L (94-250); Magnesium 2.2 mg/dL (1.6-2.5); Phosphorous 2.9 mg/dL (2.7-4.5); Sodium 141 mmol/L (133-145); Triglycerides 60 mg/dl (<125); Uric Acid 1.8 mg/dL (2.5-8.0)
[2018-11-25] MEDS ORDERED: VANCOMYCIN 2,000 MG in 0.9 % SODIUM CHLORIDE 500 ML IV SCH (09:00)
--- NOTE | 2018-11-25 10:16 | Internal Med Progress Note ---
Medical - PN: Subj Patient information: Note initiated : 11/25/18 at 10:13 am Service Date, if different from initiated Date: [] Patient: Katlyn Martinez 22 y/o F admitted on 11/23/18 for shortness of breath. Chief Complaint: [] Interval history: Ms. Martinez is a 22 year old F who works at [employer], presents to the hospital today for shortness of breath chills going on for the last 6 days. The patient has not been feeling well since September, she notes that she came down with symptoms of shortness of breath cough with whitish-yellowish production, wheezing, fatigue tiredness. She was evaluated at that time at an urgent care center, advised to take a Z-Robinson. She completed the course of antibiotics which did not help her symptoms. She was seen again I believe in minor care and was prescribed another antibiotic Augmentin along with some steroids. The patient to please medications without any improvement in her symptoms. She was admitted to [facility] in October I believe in the early part of the month. She was treated over there with azithromycin and Rocephin, steroids. Chest CT was done which showed multifocal pneumonia with groundglass opacities. Patient notes that she had some improvement to her treatment. She also was prescribed a course of doxycycline and steroids at discharge. Last dose of steroid was 2 weeks ago. After she finished a steroid she felt better for a few days however symptoms are totally back up. The present episode started I believe on and has progressively gotten worse. She has subjective sensation of chills cough shortness of breath and wheezing. She has headache with cough intermittently, no changes in vision, sometimes it is difficult to swallow hurts. Denies any chest pain nausea vomiting diarrhea denies any anxiety or depression. The patient denies any skin rashes or new joint pains. 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 She denies any sick contacts and notes that probably she was a source of the infection for the rest of her family, has after her episode of illness and may some members of her family were also sick with similar illness. The patient does not smoke, no recreational drug use no alcohol reported. She denies any recent change in the perfume or any obvious environmental change that she can think of. Labs in the emergency room show, WBC count of 16,000, 10% eosinophils, chemistries unremarkable, urine is negative for any hematuria proteinuria, chest CT was done which shows pneumonia in the left upper lobe groundglass opacity. On comparison with a chest CT done at [facility] where the patient had multifocal pneumonia, at this time the patient only has left upper lobe pneumonia the rest of the opacities have resolved. Lactic acid is elevated at 2.8, patient has had multiple rounds of duo nebs this morning. Given that the patient is significantly short of breath, has had recent admissions and failed outpatient treatment, elevated white blood cell count elevated lactic acid patient is being admitted to the hospital for management I have reviewed the chart at [facility], she was evaluated by infectious disease specialist at that time, she underwent testing for Legionella urine strep, purtusis, MRSA screen was negative sputum cultures were negative blood cultures were negative repeat chest x-ray done on 11/16 was also negative 11/24 Patient seen and examined, overnight a bit tachycardic however this morning much better. Has no complaints or concerns breathing is better. Labs reviewed, procalcitonin is negative cultures are negative so far 11/25 Patient seen and examined, tachycardic yesterday, responded to some Ativan and metoprolol. EKG showed some sinus tachycardia and nonspecific T wave changes. I believe patient's tachycardia is related to patient's anxiety as well as use of albuterol. Xopenex is presently being used instead of albuterol. Patient had rising WBC count however clinically appears stable likely related to use of steroids. Breathing is much better air entry is improved We will switch IV steroids to p.o. steroids. Patient wishes to be evaluated by ID consult, I have consulted infectious disease for further evaluation of patient's pulmonary infiltrates Pertinent ROS: Denies headache, dizziness present when tachycardic Denies chest pain, palpitation shortness of breath improved. Denies abdominal pain, nausea or vomiting. - Constitutional Vitals: Vital Signs Temp Pulse Resp BP Pulse Ox 98.3 F 90 20 151/78 95 11/25/18 08:00 11/25/18 08:00 11/25/18 08:00 11/25/18 08:00 11/25/18 08:00 Period Temp Pulse Resp BP Sys/Vee Pulse Ox Last 24 Hr 98.1 F-99.2 F 88-150 16-20 92-151/51-78 94-95 Intake and Output 11/24/18 11/25/18 11/25/18 21:59 05:59 13:59 Intake Total 2370 1150 Balance 2370 1150 Weight 243 lb Intake & Output: Intake & Output 11/24/18 11/25/18 11/25/18 21:59 05:59 13:59 Intake Total 2370 1150 Balance 2370 1150 Weight 243 lb Intake: IV 550 550 Zosyn 3.375 gm In Dextrose 5% 50 50 in Water 50 ml @ 100 mls/hr IV Q6H [facility] Rx#:[id number] Vancomycin 1,500 mg In Sodium 500 500 Chloride 0.9% 500 ml @ 333.3 mls/hr IV Q12H [facility] Rx#: [id number] Oral 1820 600 Other: Meal Lunch Percent of Meal Consumed 100% Feeding Ability Independent # Voids 1 2 Exam: Constitutional; Afebrile, cooperative, alert, not in distress. Eyes- No icterus, , No periorbital swelling Ears- Ext ear normal, hearing normal to conversation. Neck- Midline trachea, supple Respiratory system: Air Entry equal on both sides, No crackles, mild exp wheeze, much improved since admission. CVS- Rate rhythm regular, S1,S2 heard, no gallop, no rub. Abdomen- Soft nontender abdomen, no organomegaly, no tenderness, no guarding or rigidity, [employer]- AOOx3, moving all extremities, no gross focal deficit noted. Medical - PN: Obj Da - Labs CBC & Chem 7: 11/25/18 04:49 11/25/18 04:49 Labs: Abnormal Lab Results 11/25/18 11/25/18 11/24/18 04:49 04:49 04:34 WBC 24.4 H Hgb 11.7 L Hct 35.6 L RDW 17.7 H Gran % 94.9 H Lymph % (Auto) 3.5 L [place] % (Auto) Eos % (Auto) Gran # 23.2 H Lymph # (Auto) 0.8 L [place] # (Auto) Eos # (Auto) ESR D-Dimer VBG Lactic Acid Chloride 109 H Carbon Dioxide 20 L 19 L Anion Gap BUN 5 L Glucose 159 H 149 H Uric Acid 1.8 L 2.2 L Phosphorus 2.4 L GGT 41 H C-Reactive Protein 11/24/18 11/23/18 11/23/18 04:34 15:39 15:39 WBC Hgb Hct RDW 17.4 H Gran % 92.3 H Lymph % (Auto) 7.3 L [place] % (Auto) 0.4 L Eos % (Auto) Gran # 9.6 H Lymph # (Auto) 0.8 L [place] # (Auto) 0 L Eos # (Auto) ESR D-Dimer VBG Lactic Acid < 0.2 L Chloride Carbon Dioxide Anion Gap BUN Glucose Uric Acid Phosphorus GGT C-Reactive Protein 3.5 H 11/23/18 11/23/18 11/23/18 15:39 10:25 10:25 WBC Hgb Hct RDW Gran % Lymph % (Auto) [place] % (Auto) Eos % (Auto) Gran # Lymph # (Auto) [place] # (Auto) Eos # (Auto) ESR 29 H D-Dimer 0.56 H VBG Lactic Acid 2.8 H Chloride Carbon Dioxide Anion Gap BUN Glucose Uric Acid Phosphorus GGT C-Reactive Protein 11/23/18 11/23/18 10:25 10:25 WBC 16.0 H Hgb Hct RDW 17.2 H Gran % Lymph % (Auto) 14.4 L [place] % (Auto) Eos % (Auto) 10.1 H Gran # 11.3 H Lymph # (Auto) [place] # (Auto) Eos # (Auto) 1.6 H ESR D-Dimer VBG Lactic Acid Chloride Carbon Dioxide 19 L Anion Gap 18.0 H BUN Glucose Uric Acid Phosphorus GGT C-Reactive Protein Meds: Medications Acetaminophen (Tylenol) 650 mg PO Q6HP PRN PRN Reason: PAIN/FEVER > 101 Last Admin: 11/24/18 16:24 Dose: 650 mg Documented by: Famotidine (Pepcid) 20 mg PO BID [facility] Last Admin: 11/24/18 20:50 Dose: 20 mg Documented by: Heparin Sodium (Porcine) (Heparin Flush) 2 ml IV Q12 [facility] Piperacillin Sod/Tazobactam (Sod 3.375 gm/ Dextrose) 50 mls @ 100 mls/hr IV Q6H [facility]; Protocol Last Infusion: 11/25/18 00:43 Dose: Infused Documented by: Vancomycin HCl 1,500 mg/ (Sodium Chloride) 500 mls @ 333.3 mls/hr IV Q12H [facility] Last Infusion: 11/25/18 03:22 Dose: Infused Documented by: Ipratropium [place] (Atrovent) 2.5 ml NEB Q4HRT [facility] Last Admin: 11/25/18 07:57 Dose: 2.5 ml Documented by: Levalbuterol HCl (Xopenex) 1.25 mg NEB Q4HRT [facility] Last Admin: 11/25/18 07:57 Dose: 1.25 mg Documented by: Lorazepam (Ativan) 0.5 mg PO Q4HP PRN PRN Reason: Anxiety Last Admin: 11/25/18 05:27 Dose: 0.5 mg Documented by: Naloxone HCl (Narcan) 0.1 mg IV Q2MIN PRN PRN Reason: Opiate Reversal Ondansetron HCl (Zofran) 4 mg IV Q6HP PRN PRN Reason: Nausea And Vomiting Sodium Chloride (Saline Flush) 10 ml IV Q8 [facility] Last Admin: 11/25/18 05:15 Dose: 10 ml Documented by: Sodium Chloride (Saline Flush) 10 ml IV Q12 [facility] Trazodone HCl (Desyrel) 25 mg PO HSP PRN PRN Reason: Insomnia Last Admin: 11/24/18 21:59 Dose: 25 mg Documented by: Vancomycin HCl (Vancomycin Per Pharmacy) 1 order IV [facility]; Protocol Medical - PN: A/P - Time Spent With Patient Total time spent is greater than 50% in coordination of care (as documented) at patient's floor/unit and/or counseling patient: - Narrative A/P Narrative: A/P HCAP pneumonia Reactive airway disease, likely has asthma Obesity BMI 39.5 Lactic Acidosis, resolved tachycardia anxiety Plan Continue to monitor and meds Continue vancomycin and Zosyn, cultures negative so far, Infectious disease consult Lecocytosis related to steroids , cut back from IV to oral now, start po prednisone in AM MId line for iv access ativan for anxiety change duonebs to xoponex and atroven Full code Medical - PN: Qual - VTE Deep Vein Thrombosis/Pulmonary Embolism Present on Admission: No
[2018-11-25] MEDS: VANCOMYCIN 1,500 MG in 0.9 % SODIUM CHLORIDE 500 ML IV SCH (11:14)
[2018-11-25] MEDS: FAMOTIDINE 20 MG TABLET PO SCH ×2 (11:18→20:18)
[2018-11-25] MEDS: predniSONE 10 MG TABLET PO SCH (11:27)
--- NOTE | 2018-11-25 15:11 | Infectious Disease Consult ---
History of Present Illness Patient information: Note initiated : 11/25/18 at 2:39 pm Service Date, if different from initiated Date: [] Patient: Katlyn Martinez 22 y/o F admitted on 11/23/18 for shortness of breath. Chief Complaint: [] Consult date: 11/25/18 Requesting Physician: Nathaniel Cedillo Reason for Consult: leucocytosis, SOB Chief complaint: i have SOB History of present illness: 22 year old female with childhood Hx of asthma, was admitted to [facility] on 11/23 with c/o shortness of breath and cough since middle of September. Initially pt reports developing a viral illness in August 2018 with sympt of right ear pain, sore throat, and infrequent nonproductive cough. Pt had a neg Strep throat screen and was diagnosed to have viral pharyngitis. She was prescribed symptomatic treatment. Pt got better and did well until middle of September 2018 when she c/o cough, difficulty breathing, sore throat, fever of 100-103F and some productive cough with yellowish green sputum. She was given a Z-Robinson with minimal improvement in her symptoms. Of note many of her coworkers were also sick with a viral URI. She completed the course of antibiotics which did not help her symptoms. She was seen again in outpatieent clinic and prescribed a 10-day course of Augmentin 875/125 bid along with oral Prednisone. She continued to have minimally prod cough and was admitted at [facility] from 11/02-11/07/18, treated with IV O2, steroids and antibiotics. Chest CT was done which showed multifocal pneumonia with groundglass opacities. Her w/u including blood Cx, sputum Cx, ur legionella Ag, MRSA screen, Pertussis was negative. She was discharged on PO Doxycycline and was seen in outpatient clinic. As she was not getting better, she underwent PFTs and was staretd on Advair/albuterol. She was seen again on outpatient clinic visit with PCP and prescribed PO Levofloxacin and pantaprazole as she was not getting better. She was supposed to see me today in clinic but because of worsening symptoms: SOB with distress. She was brought to [facility] with admission VS: afebrile, HR 119, RR 24, BP 119/81 and satting 97% on RA. Her WBC was 16k with high PMNs and eosinophils, Lactate 2.8, neg Procalcitonin. Chest CT was done which showed left upper lobe groundglass opacity. On comparison with a chest CT done at [facility], the chest CT was much better. Pt was started on IV Vanc and IV Zosyn, given IVF. Blood Cx, sputum Cx, HIV serology have been neg. An extensive work up for autoimmune ds was also sent by primary team. At time of visit, pt reported feeling better. She denied any fevers, SOB, diarrhea, n/v, belly pain. She endorsed mild cough with yellow green sputum without any blood. She felt comfortable breathing on room air. She denied any international or local travel in last few mnths. Denied any visit or exposure to farm, ranch, animals. Doesnot have any pets. Denied any heartburn or reflux until while in the hospital. Review of Systems All systems PM: reviewed and no additional remarkable complaints except as stated Past History Past family history: No hx of sick contacts in family Past social history: doesnot smoke, use alc or inject any drugs Medications and Allergies Home Medications Medication Instructions Recorded Confirmed Type albuterol sulfate HFA 90 2 puff INHALATION Q6H PRN #6.7 g 10/19/18 11/23/18 Rx mcg/actuation aerosol inhaler albuterol sulfate 2.5 mg/3 mL 2.5 mg INHALATION Q4H PRN #75 ml 11/09/18 11/23/18 Rx (0.083 %) solution for nebulization fluticasone propionate 50 1 spray INTRANASAL QDAY 11/09/18 11/23/18 History mcg/actuation nasal spray,suspension guaifenesin ER 600 mg tablet, 600 mg PO BID PRN 11/09/18 11/23/18 History extended release 12 hr montelukast 10 mg tablet 10 mg PO QPM 11/09/18 11/23/18 History nebulizer accessories kit See Dose Instructions .ROUTE 11/09/18 11/22/18 Rx .MEDSUPPLY #1 each fluticasone 250 mcg-salmeterol 50 1 inh INHALATION BID #60 each 11/16/18 11/23/18 Rx mcg/dose blistr powdr for inhalation ipratropium-albuterol 0.5 mg-3 3 ml INHALATION QID PRN #90 ml 11/22/18 11/23/18 Rx mg(2.5 mg base)/3 mL nebulization soln levofloxacin 500 mg tablet 500 mg PO QDAY #7 tab 11/22/18 11/23/18 Rx pantoprazole 40 mg tablet,delayed 40 mg PO QDAY #30 tab 11/22/18 11/23/18 Rx release Allergies Allergy/AdvReac Type Severity Reaction Status Date / Time No Known Drug Allergies Allergy Verified 11/22/18 10:59 Physical Examination Vital signs: Temp Pulse Resp BP Pulse Ox 37.1 C 113 H 24 H 98/54 94 11/25/18 12:35 11/25/18 12:35 11/25/18 12:35 11/25/18 12:35 11/25/18 12:35 General appearance: no acute distress Eyes pulmonary: nonicteric ENT: oropharynx moist Effort: normal Auscultation: bilateral: clear Cardiovascular: regular rate and rhythm, other (s1 s2 normal, no m/r/g) Gastrointestinal: normoactive bowel sounds Integumentary: normal Extremities: no cyanosis, no edema normal mental status, non-focal exam Results - Laboratory Findings CBC and BMP: 11/25/18 04:49 11/25/18 04:49 PT/INR, D-dimer D-Dimer 0.56 ug/ml (0.00-0.40) H 11/23/18 10:25 Abnormal lab findings: Abnormal Labs 11/23/18 11/23/18 11/23/18 10:25 10:25 10:25 WBC 16.0 H Hgb Hct RDW 17.2 H Gran % Lymph % (Auto) 14.4 L [place] % (Auto) Eos % (Auto) 10.1 H Gran # 11.3 H Lymph # (Auto) [place] # (Auto) Eos # (Auto) 1.6 H ESR D-Dimer 0.56 H VBG Lactic Acid Chloride Carbon Dioxide 19 L Anion Gap 18.0 H BUN Glucose Uric Acid Phosphorus GGT C-Reactive Protein 11/23/18 11/23/18 11/23/18 10:25 15:39 15:39 WBC Hgb Hct RDW Gran % Lymph % (Auto) [place] % (Auto) Eos % (Auto) Gran # Lymph # (Auto) [place] # (Auto) Eos # (Auto) ESR 29 H D-Dimer VBG Lactic Acid 2.8 H Chloride Carbon Dioxide Anion Gap BUN Glucose Uric Acid Phosphorus GGT C-Reactive Protein 3.5 H 11/23/18 11/24/18 11/24/18 15:39 04:34 04:34 WBC Hgb Hct RDW 17.4 H Gran % 92.3 H Lymph % (Auto) 7.3 L [place] % (Auto) 0.4 L Eos % (Auto) Gran # 9.6 H Lymph # (Auto) 0.8 L [place] # (Auto) 0 L Eos # (Auto) ESR D-Dimer VBG Lactic Acid < 0.2 L Chloride Carbon Dioxide 19 L Anion Gap BUN 5 L Glucose 149 H Uric Acid 2.2 L Phosphorus 2.4 L GGT 41 H C-Reactive Protein 11/25/18 11/25/18 04:49 04:49 WBC 24.4 H Hgb 11.7 L Hct 35.6 L RDW 17.7 H Gran % 94.9 H Lymph % (Auto) 3.5 L [place] % (Auto) Eos % (Auto) Gran # 23.2 H Lymph # (Auto) 0.8 L [place] # (Auto) Eos # (Auto) ESR D-Dimer VBG Lactic Acid Chloride 109 H Carbon Dioxide 20 L Anion Gap BUN Glucose 159 H Uric Acid 1.8 L Phosphorus GGT C-Reactive Protein Microbiology: Microbiology 11/23/18 10:37 Blood Blood Culture - Preliminary 11/23/18 10:33 Blood Blood Culture - Preliminary 11/23/18 08:47 Sputum - Expectorated Gram Stain - Final 11/23/18 08:47 Sputum - Expectorated Sputum Culture - Preliminary 11/23/18 08:48 Sputum - Induced Pneumocystis Carinii Smear - Final 11/23/18 08:47 Sputum - Induced Fungal Smear - Final 11/23/18 08:48 Sputum - Induced Acid Fast Bacilli Culture & Smear - Final Assessment and Plan - Narrative A/P Narrative: A: 1. Chronic bronchitis: duration almost nearing 6-7 weeks - post-viral etiology - Multiple studies suggest the role of respiratory viral infections in causation of asthma exacerbations. There has been association with asthma and certain childhood respiratory viral illnesses as well. - no concerns for pneumonia [bacterial or viral or fungal] at this point based on absence of SOB, neg CT chest, neg procalcitonin, neg Cx [blood and sputum], neg HIV serology - symptomatically better with steroids 2. Leucocytosis: seems sec to steroids - No concerns for sepsis Recommendations: - consider stopping IV antibiotics - consider w/u for asthma diagnosis and pulmonary outpatient follow up - Pt counseled to change her old air conditioning, as it might increase risk of mold inhalation (during high humidity) - repeat CBC to document downtrending once steroids are weaned off. I will be available for any questions (inpatient or outpatient). Hola Borja MD Infectious diseases
[2018-11-25] MEDS: ACETAMINOPHEN 325 MG TABLET PO PRN (20:16)
[2018-11-25] MEDS: traZODone HCL 50 MG TABLET PO PRN (23:15)
[2018-11-26] MEDS: LEVALBUTEROL 1.25 MG/3 ML AMPUL.NEB NEB SCH ×3 (03:33→11:24)
[2018-11-26] MEDS: IPRATROPIUM 2.5 ML AMPUL.NEB NEB SCH ×3 (03:33→11:24)
[2018-11-26 05:27] LABS: Basophils # (Auto) 0 K/mcL (0.0-0.3); Basophils % (Auto) 0.1 % (0.0-2.0); Eosinophils # (Auto) 0 K/mcL (0.0-0.7); Eosinophils % (Auto) 0.1 % (0.0-7.0); Granulocytes % (Auto) 72.5 % (38.0-78.0); Hematocrit 32.7 % (36.0-48.0); Hemoglobin 10.8 g/dL (12.0-15.0); Lymphocytes # (Auto) 3.3 K/mcL (1.5-4.8); Mean Cell Volume 83.7 fL (80.0-100.0); Mean Corpuscular HGB Conc 32.9 g/dL (31.0-36.0); Mean Platelet Volume 8.9 fL (7.4-10.4); Monocytes % (Auto) 6.3 % (1.0-12.0); Platelet Count 293 K/mcL (140-440); Red Cell Distribution Width 17.6 % (11.5-14.5); WBC 15.7 K/mcL (4.5-11.0)
[2018-11-26 05:49] LABS: ALT/SGPT 25 U/l (0-40); AST/SGOT 13 U/l (0-37); Albumin 3.2 gm/dL (3.2-5.2); Albumin/Globulin Ratio 1.3 (1.0-2.3); Alkaline Phosphatase 69 U/L (39-117); Bilirubin,Direct < 0.2 mg/dL (0.0-0.3); Bilirubin,Total < 0.2 mg/dL (0.0-1.0); Blood Urea Nitrogen 11 mg/dl (6-20); Calcium 8.3 mg/dl (8.6-10.4); Carbon Dioxide 25 mmol/L (22-30); Chloride 107 mmol/L (96-108); Globulin 2.5 gm/dL (2.2-3.7); Glomerular Filtration Rate 131; Glucose 116 mg/dL (70-105); Lactate Dehydrogenase 159 U/L (94-250); Magnesium 2.3 mg/dL (1.6-2.5); Phosphorous 3.1 mg/dL (2.7-4.5); Potassium 3.3 mmol/L (3.3-5.1); Sodium 143 mmol/L (133-145); Triglycerides 68 mg/dl (<125); Uric Acid 2.6 mg/dL (2.5-8.0)
[2018-11-26] MEDS: 0.9 % SODIUM CHLORIDE 10 ML SYRINGE IV SCH ×2 (05:54→08:35)
[2018-11-26] MEDS ORDERED: POTASSIUM CHLORIDE 20 MEQ PACKET PO ONE (08:06)
[2018-11-26] MEDS: predniSONE 10 MG TABLET PO SCH (08:35)
[2018-11-26] MEDS: FAMOTIDINE 20 MG TABLET PO SCH (08:35)
[2018-11-26] MEDS: ACETAMINOPHEN 325 MG TABLET PO PRN (08:36)
--- NOTE | 2018-11-26 10:20 | Discharge Summary ---
Medical - DS: Prov Patient information: Note initiated : 11/26/18 at 10:15 am Service Date, if different from initiated Date: [] Patient: Katlyn Martinez 22 y/o F admitted on 11/23/18 for shortness of breath. Chief Complaint: [] Date of admission: 11/23/18 15:17 Discharge date: 11/26/18 Primary care physician: Elizabeth Lopez Consults: 11/23/18 Consult to Physician [CONS] Stat Comment: Consulting Provider: Nathaniel Cedillo Reason For Exam: Physician to Consult 11/25/18 08:32 Consult to Infectious Disease [CONS] Routine Comment: Consulting Provider: Hola Borja Reason For Exam: Physician to Consult Discharging clinician: Nathaniel Cedillo Medical - DS: Meds - Discharge Medications Prescriptions: Levalbuterol [Xopenex] 0.63 mg NEB Q6HP PRN #120 ampul.neb PRN Reason: Wheezing predniSONE [Prednisone] 10 mg PO DAILY #40 tab Active and Home Medications: Home Medications albuterol sulfate HFA 90 mcg/actuation aerosol inhaler 2 puff INHALATION Q6H PRN #6.7 g 10/19/18 [Rx Confirmed 11/23/18 Last Taken 11/23/18] albuterol sulfate 2.5 mg/3 mL (0.083 %) solution for nebulization 2.5 mg INHALAT ION Q4H PRN #75 ml 11/09/18 [Rx Confirmed 11/23/18 Last Taken 11/23/18 07:00] fluticasone propionate 50 mcg/actuation nasal spray,suspension 1 spray INTRANASAL QDAY 11/09/18 [History Confirmed 11/23/18 Last Taken 11/23/18] guaifenesin ER 600 mg tablet, extended release 12 hr 600 mg PO BID PRN 11/09/18 [History Confirmed 11/23/18 Last Taken 11/22/18] montelukast 10 mg tablet 10 mg PO QPM 11/09/18 [History Confirmed 11/23/18 Last Taken 11/22/18 21:00] nebulizer accessories kit See Dose Instructions .ROUTE .MEDSUPPLY #1 each 11/09/18 [Rx Confirmed 11/22/18 Last Taken Unknown] fluticasone 250 mcg-salmeterol 50 mcg/dose blistr powdr for inhalation 1 inh INHALATION BID #60 each 11/16/18 [Rx Confirmed 11/23/18 Last Taken 11/23/18 07:00] ipratropium-albuterol 0.5 mg-3 mg(2.5 mg base)/3 mL nebulization soln 3 ml INHALATION QID PRN #90 ml 11/22/18 [Rx Confirmed 11/23/18 Last Taken 11/22/18] levofloxacin 500 mg tablet 500 mg PO QDAY #7 tab 11/22/18 [Rx Confirmed 11/23/18 Last Taken 11/23/18 09:00] pantoprazole 40 mg tablet,delayed release 40 mg PO QDAY #30 tab 11/22/18 [Rx Confirmed 11/23/18 Last Taken 11/22/18 21:00] Levalbuterol [Xopenex] 0.63 mg NEB Q6HP PRN #120 ampul.neb 11/26/18 [Rx Last Taken Unknown] predniSONE [Prednisone] 10 mg PO DAILY #40 tab 11/26/18 [Rx Last Taken Unknown] Medical - DS: Hosp Hospital course: Ms. Martinez is a 22 year old F who works at [employer], presents to the hospital today for shortness of breath chills going on for the last 6 days. The patient has not been feeling well since September, she notes that she came down with symptoms of shortness of breath cough with whitish-yellowish production, wheezing, fatigue tiredness. She was evaluated at that time at an urgent care center, advised to take a Z-Robinson. She completed the course of antibiotics which did not help her symptoms. She was seen again I believe in minor care and was prescribed another antibiotic Augmentin along with some steroids. The patient to please medications without any improvement in her symptoms. She was admitted to [facility] in October I believe in the early part of the month. She was treated over there with azithromycin and Rocephin, steroids. Chest CT was done which showed multifocal pneumonia with groundglass opacities. Patient notes that she had some improvement to her treatment. She also was prescribed a course of doxycycline and steroids at discharge. Last dose of steroid was 2 weeks ago. After she finished a steroid she felt better for a few days however symptoms are totally back up. The present episode started I believe on and has progressively gotten worse. She has subjective sensation of chills cough shortness of breath and wheezing. She has headache with cough intermitte ntly, no changes in vision, sometimes it is difficult to swallow hurts. Denies any chest pain nausea vomiting diarrhea denies any anxiety or depression. The patient denies any skin rashes or new joint pains. 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 She denies any sick contacts and notes that probably she was a source of the infection for the rest of her family, has after her episode of illness and may some members of her family were also sick with similar illness. The patient does not smoke, no recreational drug use no alcohol reported. She denies any recent change in the perfume or any obvious environmental change that she can think of. Labs in the emergency room show, WBC count of 16,000, 10% eosinophils, chemistries unremarkable, urine is negative for any hematuria proteinuria, chest CT was done which shows pneumonia in the left upper lobe groundglass opacity. On comparison with a chest CT done at [facility] where the patient had multifocal pneumonia, at this time the patient only has left upper lobe pneumonia the rest of the opacities have resolved. Lactic acid is elevated at 2.8, patient has had multiple rounds of duo nebs this morning. Given that the patient is significantly short of breath, has had recent admissions and failed outpatient treatment, elevated white blood cell count elevated lactic acid patient is being admitted to the hospital for management I have reviewed the chart at [facility], she was evaluated by infectious disease specialist at that time, she underwent testing for Legionella urine strep, purtusis, MRSA screen was negative sputum cultures were negative blood cultures were negative repeat chest x-ray done on 11/16 was also negative In summary Patient admitted to the hospital with a diagnosis of shortness of breath wheezing, and infiltrates on the chest x-ray. Patient has had multiple rounds of antibiotics recently. She had some eosinophils in her blood. I reviewed the case on the phone with the stitch separator, infectious disease was also consulted while in the hospital. Work-up was sent for autoimmune diseases, but it is very likely that the patient's symptoms are related to her asthma or reactive airway disease. Infectious disease evaluated the patient and determined that the patient's chest x-ray findings are not related to pneumonia and antibiotics were not necessary. Patient will be discharged home with oral steroid taper, she has been advised to follow-up with pulmonary as an outpatient. I have prescribed Xopenex for the patient given that she has been quite tachycardic with the use of DuoNeb. I am not sure if this medication will be covered by insurance in case it is not covered patient is advised to continue using DuoNeb or albuterol to help with her respiratory symptoms. Patient's work-up for a comprehensive MIGEL screen as well as ANCA panel still pending, anti-CCP is pending this needs to be followed by the primary care provider and if positive I would advise a referral to a telecasting engineer Discharge diagnosis: Asthma Exacerbation - Time Spent with Patient Total time spent providing and/or coordinating discharge services: Greater than 30 minutes Medical - DS: Exam - Constitutional Vitals: Vital Signs Temp Pulse Pulse Resp BP BP Pulse Ox 11/26/18 07:37 98.2 F 80 16 119/77 97 11/26/18 07:18 72 18 11/26/18 07:11 97 11/26/18 04:01 97.8 F 99 H 18 103/63 95 11/25/18 23:25 93 H 20 11/25/18 23:10 97.4 F 86 20 110/63 94 11/25/18 20:00 98.1 F 110 H 18 110/67 96 11/25/18 15:37 98.6 F 97 H 18 115/71 95 11/25/18 14:55 89 20 11/25/18 12:35 98.8 F 113 H 24 H 98/54 94 11/25/18 11:56 97.9 F 118 H 16 121/68 95 11/25/18 11:31 93 H 20 Intake and Output 11/25/18 11/26/18 11/26/18 21:59 05:59 13:59 Intake Total 2079 200 Balance 2079 Intake: Oral 2079 Other: Meal Dinner Breakfast Percent of Meal Consumed 100% 100% Feeding Ability Independent Independent # Voids 2 Weight 241 lb 8 oz 241 lb 8 oz Additional comments: Constitutional; Afebrile, cooperative, alert, not in distress. Eyes- No icterus, , No periorbital swelling Ears- Ext ear normal, hearing normal to conversation. Neck- Midline trachea, supple Respiratory system: Air Entry equal on both sides, No crackles or wheezing, no rhonchi. CVS- Rate rhythm regular, S1,S2 heard, no gallop, no rub. Abdomen- Soft nontender abdomen, no organomegaly, no tenderness, no guarding or rigidity, ANTENNA RIGGER- AOOx3, moving all extremities, no gross focal deficit noted. Medical - DS: Data Labs on day of discharge: Labs from last 24 hours 11/26/18 11/26/18 04:00 04:00 WBC 15.7 H RBC 3.90 L Hgb 10.8 L Hct 32.7 L MCV 83.7 MCH 27.5 MCHC 32.9 RDW 17.6 H Plt Count 293 MPV 8.9 Gran % 72.5 Lymph % (Auto) 21.0 [place] % (Auto) 6.3 Eos % (Auto) 0.1 Baso % (Auto) 0.1 Gran # 11.4 H Lymph # (Auto) 3.3 [place] # (Auto) 1.0 H Eos # (Auto) 0 Baso # (Auto) 0 Sodium 143 Potassium 3.3 Chloride 107 Carbon Dioxide 25 Anion Gap 11.0 BUN 11 Creatinine 0.6 GFR Calculation 131 Glucose 116 H Uric Acid 2.6 Calcium 8.3 L Phosphorus 3.1 Magnesium 2.3 Total Bilirubin < 0.2 Direct Bilirubin < 0.2 GGT 32 AST 13 ALT 25 Alkaline Phosphatase 69 Lactate Dehydrogenase 159 Total Protein 5.7 L Albumin 3.2 Globulin 2.5 Albumin/Globulin Ratio 1.3 Triglycerides 68 Preliminary micro results at discharge 11/23/18 10:37 Blood Culture - Preliminary Blood 11/23/18 10:33 Blood Culture - Preliminary Blood 11/23/18 08:47 Sputum Culture - Preliminary Sputum - Expectorated Medical - DS: A/P - Patient/Caregiver Discharge Instructions Activity: increase activity as tolerated Diet: Regular Diet Additional Instructions: Please use Xopenex nebulizers every 4-6 hours as needed for shortness of breath. This is an replacement for the DuoNeb nebulizer that you have at home. If your insurance does not cover this new prescription please use the DuoNeb nebulizer you have at home. Take the steroids as prescribed, take it in the morning with food. Follow-up with your primary care provider in 1 week Follow-up with your stitch separator in 1 to 2 weeks Go to the emergency room with fever chest pain shortness of breath or any other acute symptoms Prescriptions: Levalbuterol [Xopenex] 0.63 mg NEB Q6HP PRN #120 ampul.neb PRN Reason: Wheezing predniSONE [Prednisone] 10 mg PO DAILY #40 tab - Follow up Plan Follow up with: Elizabeth Lopez ARNP [Primary Care Provider] - Disposition: Home, Self-Care Prognosis: Good Rehab Potential: Good I certify that the patient requires SNF services: No Medical - DS: Qual - VTE Deep Vein Thrombosis/Pulmonary Embolism Present on Admission: No
[2018-11-30 15:38] LABS: Myeloperoxidase Antibody <1.0 AI (<1.0)
[2018-11-30 15:54] LABS: Cyclic Citrullinated Peptide < 16 UNITS
[2018-11-30 15:59] LABS: ANA SCREEN, IFA NEGATIVE (NEGATIVE); DNA (DS) ANTIBODY <1 IU/mL; SCL-7-ANTIBODY <1.0 NEG AI (<1.0 NEG); SM ANTIBODY <1.0 NEG AI (<1.0 NEG); SM/RNP ANTIBODY <1.0 NEG AI (<1.0 NEG); SSA <1.0 NEG AI (<1.0 NEG); SSB <1.0 NEG AI (<1.0 NEG)
== END 2018-11-26 11:54 | disposition home or self-care (01) | DRG 203 ==
LOC: ED 10:01 → MEDSUR 15:17
PROVIDERS: ADMIT Internal Medicine; ATTEND Internal Medicine